=== PATIENT | female | born 1975 | race Caucasian/White ===

== ENCOUNTER 2017-10-08 21:15 | Inpatient (IN) | payer OTHER ==
[2017-10-09 00:07] LABS: ADD MAN DIFF? NO
[2017-10-09 00:09] LABS: BASOPHILS % 0.2 % (0.0-2.0); EOSINOPHILS # 0.1 10^3/ul (0.0-0.5); EOSINOPHILS % 0.6 % (0.0-7.0); HEMATOCRIT 35.8 % (37.0-47.0); HEMOGLOBIN 11.8 g/dl (12.0-16.0); LYMPHOCYTES # 2.7 10^3/ul (0.8-2.9); LYMPHOCYTES % 31.8 % (15.0-51.0); MEAN CORPUSCULAR HEMOGLOBIN 29.9 pg (29.0-33.0); MEAN CORPUSCULAR VOLUME 90.9 fl (82.0-101.0); MEAN PLATELET VOLUME 9.6 fl (7.4-10.4); MONOCYTE # 0.6 10^3/ul (0.3-0.9); NEUTROPHIL # 5.1 10^3/ul (1.6-7.5); NEUTROPHILS % 60.3 % (39.0-77.0); PLATELET COUNT 282 10^3/UL (140-415); RED BLOOD COUNT 3.94 10^6/ul (4.20-5.40); RED CELL DISTRIBUTION WIDTH 11.5 % (11.5-14.5)
[2017-10-09 00:09] LABS: WHITE BLOOD COUNT 8.4 10^3/ul (4.8-10.8)
[2017-10-09 00:16] LABS: ADD UMIC YES; UR ASCORBIC ACID NEGATIVE (NEGATIVE); UR BILIRUBIN (Dip) NEGATIVE (NEGATIVE); UR BLOOD (Dip) 1+ mg/dL (NEGATIVE); UR CLARITY CLEAR (CLEAR); UR COLOR YELLOW (YELLOW); UR GLUCOSE (Dip) NEGATIVE (NEGATIVE); UR KETONES (Dip) NEGATIVE (NEGATIVE); UR LEUKOCYTE ESTERASE (Dip) NEGATIVE Leu/ul (NEGATIVE); UR NITRITE (Dip) NEGATIVE (NEGATIVE); UR RBC 6 /HPF (0-5); UR SPECIFIC GRAVITY (Dip) 1.019 (1.003-1.030); UR TOTAL PROTEIN (Dip) NEGATIVE (NEGATIVE); UR UROBILINOGEN (Dip) NEGATIVE (NEGATIVE); UR WBC 0 /HPF (0-5)
[2017-10-09 00:47] LABS: ALANINE AMINOTRANSFERASE 28 IU/L (13-69); ALBUMIN 4.4 g/dl (3.3-4.9); ALBUMIN/GLOBULIN RATIO 1.51; ALKALINE PHOSPHATASE 65 IU/L (42-121); ANION GAP 11 (8-16); ASPARTATE AMINO TRANSFERASE 23 IU/L (15-46); BILIRUBIN,INDIRECT 0.1 mg/dl (0-1.1); BILIRUBIN,TOTAL 0.1 mg/dl (0.2-1.3); BLOOD UREA NITROGEN 14 mg/dl (7-20); CALCIUM 9.4 mg/dl (8.4-10.2); CARBON DIOXIDE 29 mmol/L (21-31); CHLORIDE 106 mmol/L (97-110); CREATININE 0.67 mg/dl (0.44-1.00); GLUCOSE 101 mg/dl (70-220); POTASSIUM 3.9 mmol/L (3.5-5.1); SODIUM 142 mmol/L (135-144); TOTAL PROTEIN 7.3 g/dl (6.1-8.1)
[2017-10-09 00:59] LABS: B-TYPE NATRIURETIC PEPTIDE 87 PG/ML (0-125); TROPONIN-I < 0.010 ng/ml (0.000-0.120)
[2017-10-09] MEDS ORDERED: NACL 0.9% 3 ML SYG IV (05:00)
[2017-10-09] MEDS ORDERED: BISACODYL (EC) 5 MG TAB PO (05:00)
[2017-10-09] MEDS ORDERED: ONDANSETRON 4 MG INJ IV (05:00)
[2017-10-09] MEDS ORDERED: DOCUSATE SODIUM 100 MG CAP PO (05:00)
[2017-10-09] MEDS ORDERED: morphine 2 MG INJ IV (05:00)
[2017-10-09] MEDS ORDERED: ACETAMINOPHEN 325 MG TAB PO (05:00)
[2017-10-09 07:44] LABS: ADD MAN DIFF? NO
[2017-10-09 07:52] LABS: WHITE BLOOD COUNT 8.7 10^3/ul (4.8-10.8)
[2017-10-09 07:52] LABS: BASOPHILS % 0.3 % (0.0-2.0); EOSINOPHILS % 0.5 % (0.0-7.0); HEMATOCRIT 35.4 % (37.0-47.0); HEMOGLOBIN 11.8 g/dl (12.0-16.0); LYMPHOCYTES # 2.4 10^3/ul (0.8-2.9); LYMPHOCYTES % 27.3 % (15.0-51.0); MEAN CORPUSCULAR HEMOGLOBIN 30.3 pg (29.0-33.0); MEAN CORPUSCULAR HGB CONC 33.3 g/dl (32.0-37.0); MEAN CORPUSCULAR VOLUME 90.8 fl (82.0-101.0); MEAN PLATELET VOLUME 9.7 fl (7.4-10.4); MONOCYTE # 0.6 10^3/ul (0.3-0.9); MONOCYTES % 6.5 % (0.0-11.0); NEUTROPHIL # 5.7 10^3/ul (1.6-7.5); NEUTROPHILS % 65.2 % (39.0-77.0); PLATELET COUNT 268 10^3/UL (140-415); RED CELL DISTRIBUTION WIDTH 11.6 % (11.5-14.5)
[2017-10-09 08:30] LABS: ALANINE AMINOTRANSFERASE 35 IU/L (13-69); ALBUMIN 4.1 g/dl (3.3-4.9); ALBUMIN/GLOBULIN RATIO 1.32; ALKALINE PHOSPHATASE 56 IU/L (42-121); ANION GAP 14 (8-16); ASPARTATE AMINO TRANSFERASE 26 IU/L (15-46); BILIRUBIN,INDIRECT 0.4 mg/dl (0-1.1); BILIRUBIN,TOTAL 0.4 mg/dl (0.2-1.3); BLOOD UREA NITROGEN 11 mg/dl (7-20); CALCIUM 9.1 mg/dl (8.4-10.2); CARBON DIOXIDE 24 mmol/L (21-31); CHLORIDE 107 mmol/L (97-110); CHOL/HDL RATIO 3.3 RATIO; CHOLESTEROL 190 mg/dl (100-200); CREATININE 0.57 mg/dl (0.44-1.00); GLUCOSE 97 mg/dl (70-220); HDL CHOLESTEROL 56 mg/dl (34-88); LDL CHOLESTEROL,CALCULATED 119 mg/dl; MAGNESIUM 2.1 mg/dl (1.7-2.5); SODIUM 141 mmol/L (135-144); TOTAL PROTEIN 7.2 g/dl (6.1-8.1); TRIGLYCERIDES 75 mg/dl (0-149)
[2017-10-09 08:39] LABS: HEMOGLOBIN A1C 5.2 % (0-5.9)
[2017-10-09 10:40] LABS: IRON 62 ug/dl (35-150)
[2017-10-09 10:49] LABS: % IRON SATURATION 20 % SAT (22-52); TOTAL IRON BINDING CAPACITY 304 ug/dl (241-421)
[2017-10-09] MEDS: METOPROLOL 100 MG TAB PO (12:22)
[2017-10-09] MEDS: IOHEXOL 100 ML (14:38)
[2017-10-09] MEDS: SOD CHLORIDE 0.9% 100 ML (14:38)
[2017-10-09 15:54] LABS: CREATINE KINASE 75 IU/L (23-200)
[2017-10-09 16:08] LABS: CK INDEX 0.6; CK-MB 0.47 ng/ml (0.0-2.4); TROPONIN-I < 0.010 ng/ml (0.000-0.120)
[2017-10-09] MEDS: VERAPAMIL (SR) 120 MG TAB PO (21:13)
[2017-10-10] MEDS: VERAPAMIL (SR) 120 MG TAB PO (09:12)
[2017-10-10] MEDS ORDERED: morphine LIQ (10 MG/5 ML) CUP PO (15:00)
[2017-10-10] MEDS: LORAZEPAM 2 MG INJ IV (23:36)
[2017-10-11] MEDS: METOPROLOL (XL) 25 MG TAB PO (08:15)
[2017-10-12] MEDS: METOPROLOL (XL) 25 MG TAB PO (08:58)
== END 2017-10-12 16:32 | disposition home or self-care (01) | DRG 309 ==
LOC: FTE 21:15 → MS4 10-09 01:43
DX: I47.2 Ventricular tachycardia (principal); I42.8 Other cardiomyopathies; Z68.41 Body mass index [BMI] 40.0-44.9, adult; I10 Essential (primary) hypertension; E78.5 Hyperlipidemia, unspecified; D64.9 Anemia, unspecified; F41.9 Anxiety disorder, unspecified; E66.9 Obesity, unspecified
CPT/HCPCS: 36415; 71045; 75574; 80053; 80061; 81001; 81025; 82550; 82553; 83036; 83540; 83735; 83880; 84443; 84484; 85025; 93005; 93306; 99285-25